=== PATIENT | female | born 1985 | race African-American/Black ===

== ENCOUNTER 2021-01-26 04:12 | Emergency (ER) | payer BC ==
[~2021-01-26] VITALS: Ht 165.1 cm; Wt 72.0 kg
[2021-01-26 04:42] VITALS: BP 136/86
[2021-01-26 05:06] LABS: CLARITY URINE CLOUDY (CLEAR); COLOR URINE YELLOW (YELLOW); KETONES URINE TRACE (NEGATIVE); LEUKOCYTE ESTERASE URINE 3+ (NEGATIVE); NITRITE URINE POSITIVE (NEGATIVE); OCCULT BLOOD URINE 2+ (NEGATIVE); PROTEIN URINE 1+ (NEGATIVE); SPECIFIC GRAVITY URINE 1.016 (1.005-1.030)
[2021-01-26] MEDS ORDERED: CIPR-263 MT (05:51)
[2021-01-26] MEDS ORDERED: TOPUD MT (05:51)
== END 2021-01-26 06:19 | disposition home or self-care (01) ==
LOC: ER 04:12
DX: N39.0 Urinary tract infection, site not specified (principal)
CPT/HCPCS: 81003; 81025; 87077; 87186; 99283